=== PATIENT | female | born 1935 | race African-American/Black ===

== ENCOUNTER 2018-04-14 10:20 | Emergency (ER) | payer OTHER ==
[~2018-04-14] VITALS: Ht 149.9 cm; Wt 77.1 kg
[2018-04-14] MEDS ORDERED: SYMBICORT160 MCG/4. INH (10:40)
[2018-04-14] MEDS ORDERED: INDAPAMIDE2.5 MG PO (10:40)
[2018-04-14] MEDS ORDERED: FLOMAX0.4 MG PO (10:41)
[2018-04-14] MEDS ORDERED: KLOR-CON 1010 MEQ PO (10:41)
[2018-04-14] MEDS ORDERED: PRAVACHOL40 MG PO (10:41)
[2018-04-14] MEDS ORDERED: ALLOPURINOL 30300 M1 PO (10:41)
[2018-04-14] MEDS ORDERED: LASIX 20 MG TAB20 MG PO (10:42)
[2018-04-14] MEDS ORDERED: PROTONIX40 M1 PO (10:42)
[2018-04-14] MEDS ORDERED: NORCO 7.5-3251 EACH PO ×2 (10:42→12:24)
[2018-04-14] MEDS ORDERED: VITAMIN D1000 UNI1 PO (10:45)
[2018-04-14] MEDS ORDERED: ATIVAN0.5 MG PO (10:45)
[2018-04-14] MEDS ORDERED: NORFLEX100 MG PO (12:18)
[2018-04-14] MEDS ORDERED: SENNA-DOCUSATE1 EAC1 PO (12:24)
[2018-04-14 12:48] VITALS: BP 140/52
== END 2018-04-14 12:45 | disposition home or self-care (01) ==
LOC: ER 10:20
DX: S16.1XXA Strain of muscle, fascia and tendon at neck level, initial encounter (principal); S39.012A Strain of muscle, fascia and tendon of lower back, initial encounter; I82.290 Acute embolism and thrombosis of other thoracic veins; I10 Essential (primary) hypertension; Z96.653 Presence of artificial knee joint, bilateral; V89.2XXA Person injured in unspecified motor-vehicle accident, traffic, initial encounter; Y92.89 Other specified places as the place of occurrence of the external cause; Y93.89 Activity, other specified; Y99.8 Other external cause status